=== PATIENT | female | born 1975 | race Caucasian/White ===

== ENCOUNTER 2019-01-07 08:00 | Outpatient (CLI) | payer BC ==
[2019-01-07 18:28] LABS: BASOPHILS # (AUTO) 0.1 10^3/uL (0.0-0.1); BASOPHILS % (AUTO) 0.7 %; EOSINOPHILS % (AUTO) 0.5 %; HGB - HEMOGLOBIN 8.3 g/dL (12.0-16.0); LYMPHOCYTES # (AUTO) 1.8 10^3/uL (1.5-3.5); LYMPHOCYTES % (AUTO) 20.4 %; MEAN CORPUSCULAR HEMOGLOBIN 20.4 pg (27.0-31.0); MEAN CORPUSCULAR VOLUME 72.7 fL (81.0-99.0); MONOCYTES # (AUTO) 0.6 10^3/uL (0.0-1.0); MONOCYTES % (AUTO) 6.3 %; NEUTROPHILS # (AUTO) 6.3 10^3/uL (1.5-6.6); NEUTROPHILS % (AUTO) 71.6 %; PLT - PLATELET COUNT 349 10^3/uL (130-450); RED BLOOD COUNT 4.07 10^6/uL (4.20-5.40); RED CELL DISTRIBUTION WIDTH 19.6 % (12.0-15.0); WHITE BLOOD COUNT 8.7 x10^3/uL (4.8-10.8)
[2019-01-07 18:56] LABS: CALCIUM 9.1 mg/dL (8.5-10.3); CREATININE 0.6 mg/dL (0.4-1.0)
[2019-01-07 20:21] LABS: PLATELET ESTIMATE, MANUAL NORMAL (130-450,000) (NORMAL); PLATELET MORPHOLOGY 1+ LARGE PLATELETS (NORMAL)
== END 2019-01-07 23:59 | disposition home or self-care (01) ==
LOC: LAB.WCP 08:00
PROVIDERS: ATTEND Physician Assistant
DX: I10 Essential (primary) hypertension (principal); N92.0 Excessive and frequent menstruation with regular cycle
CPT/HCPCS: 36415; 80048; 85025

== ENCOUNTER 2019-01-18 08:00 | Outpatient (CLI) | payer BC ==
[2019-01-18 18:31] LABS: BASOPHILS # (AUTO) 0.1 10^3/uL (0.0-0.1); BASOPHILS % (AUTO) 0.8 %; EOSINOPHILS % (AUTO) 0.7 %; HGB - HEMOGLOBIN 8.1 g/dL (12.0-16.0); LYMPHOCYTES # (AUTO) 1.7 10^3/uL (1.5-3.5); LYMPHOCYTES % (AUTO) 27.7 %; MEAN CORPUSCULAR HEMOGLOBIN 20.4 pg (27.0-31.0); MEAN CORPUSCULAR VOLUME 72.8 fL (81.0-99.0); MEAN PLATELET VOLUME 10.4 fL (7.9-10.8); MONOCYTES # (AUTO) 0.4 10^3/uL (0.0-1.0); MONOCYTES % (AUTO) 6.9 %; NEUTROPHILS # (AUTO) 3.9 10^3/uL (1.5-6.6); NEUTROPHILS % (AUTO) 63.6 %; PLT - PLATELET COUNT 461 10^3/uL (130-450); RED BLOOD COUNT 3.97 10^6/uL (4.20-5.40); RED CELL DISTRIBUTION WIDTH 19.3 % (12.0-15.0); WHITE BLOOD COUNT 6.1 x10^3/uL (4.8-10.8)
[2019-01-18 18:45] LABS: PLATELET ESTIMATE, MANUAL INCREASED (>450,000) (NORMAL); PLATELET MORPHOLOGY NORMAL APPEARANCE (NORMAL)
[2019-01-18 19:26] LABS: % IRON SATURATION 2 % (20-50); IRON 11 ug/dL (28-170); TOTAL IRON BINDING CAPACITY 482 ug/dL (250-450); TRANSFERRIN 344 mg/dL (192-382)
== END 2019-01-18 23:59 | disposition home or self-care (01) ==
LOC: LAB.WCP 08:00
PROVIDERS: ATTEND Physician Assistant
DX: D64.9 Anemia, unspecified (principal)
CPT/HCPCS: 36415; 82728; 83540; 84466; 85025

== ENCOUNTER 2019-01-23 14:32 | Outpatient (CLI) | payer BC ==
--- NOTE | 2019-01-25 08:35 | Ultrasound Report ---
Reason: MENORRHAGIA Procedure Date: 01/23/2019 Accession Number: [id number] / [id number] Procedure: US - Pelvic w/Transvaginal CPT Code: FULL RESULT: EXAM: PELVIC ULTRASOUND EXAM DATE: 01/23/2019 03:25 PM. CLINICAL HISTORY: MENORRHAGIA. COMPARISON: None. TECHNIQUE: Realtime transabdominal pelvic scan performed to identify the uterus and adnexa and as an overview of other pelvic structures, followed by transvaginal scan to provide greater detail of the uterus and adnexa, with static image documentation. FINDINGS: Uterus: 10.9 x 4.9 x 6.4 cm, volume 178.7 cc. Anteverted position. Heterogeneous. Masses: Ill-defined judy-fundal hypoechoic lesion measuring about 0.4 x 0.4 x 0.7 cm. Endometrium: 6 mm. Normal. Cervix: Nabothian cysts. Right Ovary: 5.1 x 4.4 x 3.4 cm, volume 39.4 cc. Normal vascularity. Heterogeneous lesion measuring 4.3 x 4.0 x 3.2 cm with low-level internal echoes, probably a hemorrhagic cyst, possible endometrioma. Left Ovary: 3.5 x 2.1 x 1.9 cm, volume 7.2 cc. Normal echotexture and blood flow. Simple cyst measuring 2.1 x 2.0 x 1.7 cm. Free Fluid: None. Other: None. IMPRESSION: 1. Fibroid uterus. 2. Moderate sized right ovarian hemorrhagic cyst, possibly endometrioma. RADIA
== END 2019-01-23 14:33 | disposition home or self-care (01) ==
LOC: DI 14:32
PROVIDERS: ATTEND Physician Assistant
DX: D25.9 Leiomyoma of uterus, unspecified (principal); N83.201 Unspecified ovarian cyst, right side; N92.0 Excessive and frequent menstruation with regular cycle
CPT/HCPCS: 76830; 76856

== ENCOUNTER 2019-02-03 17:00 | Outpatient (CLI) | payer BC ==
[2019-02-03 18:34] LABS: BASOPHILS # (AUTO) 0.1 10^3/uL (0.0-0.1); BASOPHILS % (AUTO) 0.6 %; EOSINOPHILS # (AUTO) 0.1 10^3/uL (0.0-0.7); EOSINOPHILS % (AUTO) 0.6 %; HGB - HEMOGLOBIN 9.7 g/dL (12.0-16.0); LYMPHOCYTES # (AUTO) 2.3 10^3/uL (1.5-3.5); LYMPHOCYTES % (AUTO) 25.5 %; MEAN CORPUSCULAR HEMOGLOBIN 22.2 pg (27.0-31.0); MEAN CORPUSCULAR HGB CONC 29.4 g/dL (32.0-36.0); MEAN CORPUSCULAR VOLUME 75.5 fL (81.0-99.0); MEAN PLATELET VOLUME 9.9 fL (7.9-10.8); MONOCYTES # (AUTO) 0.6 10^3/uL (0.0-1.0); MONOCYTES % (AUTO) 6.1 %; PLT - PLATELET COUNT 355 10^3/uL (130-450); RED BLOOD COUNT 4.37 10^6/uL (4.20-5.40); RED CELL DISTRIBUTION WIDTH 21.7 % (12.0-15.0)
[2019-02-03 20:08] LABS: PLATELET ESTIMATE, MANUAL NORMAL (130-450,000) (NORMAL); PLATELET MORPHOLOGY 1+ LARGE PLATELETS (NORMAL)
== END 2019-02-03 17:01 | disposition home or self-care (01) ==
LOC: LAB.R 17:00
PROVIDERS: ATTEND Physician Assistant
DX: D64.9 Anemia, unspecified (principal); N92.0 Excessive and frequent menstruation with regular cycle
CPT/HCPCS: 85025

== ENCOUNTER 2019-02-15 17:00 | Outpatient (CLI) | payer BC ==
[2019-02-15 19:33] LABS: BASOPHILS % (AUTO) 0.6 %; EOSINOPHILS # (AUTO) 0.1 10^3/uL (0.0-0.7); EOSINOPHILS % (AUTO) 0.8 %; LYMPHOCYTES # (AUTO) 1.8 10^3/uL (1.5-3.5); LYMPHOCYTES % (AUTO) 28.4 %; MEAN CORPUSCULAR HEMOGLOBIN 22.8 pg (27.0-31.0); MEAN CORPUSCULAR HGB CONC 29.1 g/dL (32.0-36.0); MEAN CORPUSCULAR VOLUME 78.2 fL (81.0-99.0); MEAN PLATELET VOLUME 11.3 fL (7.9-10.8); MONOCYTES # (AUTO) 0.3 10^3/uL (0.0-1.0); MONOCYTES % (AUTO) 5.5 %; NEUTROPHILS % (AUTO) 64.4 %; PLT - PLATELET COUNT 353 10^3/uL (130-450); RED BLOOD COUNT 3.95 10^6/uL (4.20-5.40); RED CELL DISTRIBUTION WIDTH 22.7 % (12.0-15.0); WHITE BLOOD COUNT 6.2 x10^3/uL (4.8-10.8)
[2019-02-15 21:12] LABS: PLATELET ESTIMATE, MANUAL NORMAL (130-450,000) (NORMAL); PLATELET MORPHOLOGY 1+ GIANT PLATELETS (NORMAL)
== END 2019-02-15 23:59 | disposition home or self-care (01) ==
LOC: LAB.R 17:00
PROVIDERS: ATTEND Physician Assistant
DX: D64.9 Anemia, unspecified (principal)
CPT/HCPCS: 85025

== ENCOUNTER 2019-04-27 10:02 | Outpatient (CLI) | payer BC ==
[2019-04-27 10:31] LABS: BASOPHILS % (AUTO) 0.5 %; EOSINOPHILS % (AUTO) 0.7 %; HGB - HEMOGLOBIN 9.1 g/dL (12.0-16.0); LYMPHOCYTES # (AUTO) 1.3 10^3/uL (1.5-3.5); LYMPHOCYTES % (AUTO) 23.7 %; MEAN CORPUSCULAR HEMOGLOBIN 22.1 pg (27.0-31.0); MEAN CORPUSCULAR HGB CONC 29.1 g/dL (32.0-36.0); MEAN CORPUSCULAR VOLUME 76.2 fL (81.0-99.0); MEAN PLATELET VOLUME 9.5 fL (7.9-10.8); MONOCYTES # (AUTO) 0.4 10^3/uL (0.0-1.0); MONOCYTES % (AUTO) 6.3 %; NEUTROPHILS # (AUTO) 3.8 10^3/uL (1.5-6.6); NEUTROPHILS % (AUTO) 68.6 %; PLT - PLATELET COUNT 349 10^3/uL (130-450); RED BLOOD COUNT 4.11 10^6/uL (4.20-5.40); RED CELL DISTRIBUTION WIDTH 16.9 % (12.0-15.0); WHITE BLOOD COUNT 5.6 x10^3/uL (4.8-10.8)
[2019-04-27 10:31] LABS: HCG UR QUAL NEGATIVE
[2019-04-27 10:37] LABS: CALCIUM 8.9 mg/dL (8.5-10.3); CREATININE 0.6 mg/dL (0.4-1.0)
== END 2019-04-27 10:03 | disposition home or self-care (01) ==
LOC: LAB 10:02
PROVIDERS: ATTEND Obstetrics & Gynecology
DX: Z01.812 Encounter for preprocedural laboratory examination (principal); N92.0 Excessive and frequent menstruation with regular cycle; D64.9 Anemia, unspecified
CPT/HCPCS: 36415; 80048; 81025; 85025; 86850; 86900; 86901; 86920

== ENCOUNTER 2019-04-28 10:06 | Day surgery (SDC) | payer BC ==
[~2019-04-28 10:06] MED LIST: ACETAMINOPHEN 1,000 MG/100 ML 100 ML IV ONE; CEFAZOLIN SODIUM IN 0.9 % NACL 2 GM/100 ML BAG IV ONE; CELECOXIB 100 MG CAPSULE PO ONE; GABAPENTIN 400 MG CAPSULE ONE
[2019-04-28] MEDS ORDERED: ROCURONIUM 50 MG/5 ML VIAL IVP ONE (10:07)
[2019-04-28] MEDS ORDERED: GLYCOPYRROLATE 1 MG/5 ML VIAL IVP ONE (10:07)
[2019-04-28] MEDS ORDERED: ePHEDrine 50 MG/ML VIAL IVP ONE (10:07)
[2019-04-28] MEDS ORDERED: MIDAZOLAM 2 MG/2 ML VIAL IVP ONE (10:07)
[2019-04-28] MEDS ORDERED: fentaNYL 250 MCG/5 ML VIAL IVP ONE (10:07)
[2019-04-28] MEDS ORDERED: KETOROLAC 30 MG/ML VIAL IVP ONE (10:07)
[2019-04-28] MEDS ORDERED: LACTATED RINGERS 1,000 ML IV ONE ×2 (10:08→15:56)
--- NOTE | 2019-04-28 11:36 | ANESTHESIA ---
Pre-Anesthesia VS, & Labs - Diagnosis menorrhagia, anemia - Procedure LAVH, B salpingectomy, possible oopherectomy, cystoscopy Vital Signs: Temp Pulse Resp BP Pulse Ox 36.6 C 90 16 145/90 H 100 04/28/19 10:13 04/28/19 10:13 04/28/19 10:13 04/28/19 10:13 04/28/19 10:13 Height 5 ft 3 in Weight (kg) 90 kg - NPO >8 hours - Is Patient ?: No - Lab Results Lab results reviewed: Yes Home Medications and Allergies Home Medications: Ambulatory Orders Lisinopril [Zestril] 20 mg PO DAILY 04/27/19 Lisinopril [Zestril] 20 mg PO DAILY 04/27/19 Allergies/Adverse Reactions: Allergies Allergy/AdvReac Type Severity Reaction Status Date / Time No Known Drug Allergies Allergy Verified 07/21/15 20:38 Anes History & Medical History - Anesthetic History Anesthesia Complications: reports: No previous complications Family history of Anesthesia Complications: Denies Family history of Malignant Hyperthermia: Denies - Medical History Cardiovascular: reports: Hypertension Pulmonary: reports: None Gastrointestinal: reports: None Urinary: reports: None Musculoskeletal: reports: None Endocrine/Autoimmune: reports: None Skin: reports: None Smoking Status: Never smoker - Surgical History Other Past Surgical History: all teeth extracted Exam General: Alert, Oriented x3, Cooperative Dental: Dentures full Upper, Dentures full Lower Mouth Openin Fingerbreadth Neck Mobility: Normal Mallampati classification: II Thyromental Distance: greater than 6 cm Respiratory: Lungs clear, Normal breath sounds, No respiratory distress Cardiovascular: Regular rate (states she is frequently tachycardic r/t anemia and hypovolemia) Neurological: Normal speech Mental/Cognitive Status: Alert/Oriented X3, Normal for patient Cognitive Status: Within normal limits Plan Anesthesia Type: General, Transverse Abdominis Plane (TAP) Block (possible) Regional Block: Per Surgeon's request for Post Op pain control Consent for Procedure(s) Verified and Reviewed: Yes Code Status: Attempt Resuscitation ASA classification: 2-Mild systemic disease Is this case an emergency?: No
[2019-04-28] MEDS ORDERED: LIDOCAINE MPF 2%-EPI 1:200000 20 ML VIAL ONE ×2 (13:28→13:46)
[2019-04-28] MEDS ORDERED: BUPIVACAINE 0.5% PF 30 ML VIAL ONE ×2 (13:28→13:46)
[2019-04-28] MEDS ORDERED: BUPIVACAINE 0.5% PF 30 ML VIAL INFIL ONE ×2 (14:50)
[2019-04-28] MEDS ORDERED: LIDOCAINE 2%-EPI 1:100000 20 ML MDV SUBQ ONE ×2 (14:51)
--- NOTE | 2019-04-28 16:02 | OPERATIVE REPORT ---
Operative Report - General Procedure Date: 04/28/19 Planned Procedure: Menorrhagia Anemia fibroid uterus Post Op Diagnosis: Menorrhagia, anemia, fibroid pelvic endometriosis - Procedure Note Primary Surgeon: Janusz Keith MD Secondary Surgeon: Leila Casper MD Anesthesia Provider: Surjit Deleon CRNA Anesthesia Technique: General ET tube Pathology: Uterus wiht both tubes and Left ovary IV Fluids (mL): 1,200 Estimated Blood Loss (mL): 150 Urine Output (mL): 75 Findings: pelvic endometriosis. Complications: none
[2019-04-28] MEDS: HYDROmorphone 0.5 MG/0.5 ML SYRINGE ONE ×2 (16:13→16:32)
[2019-04-28] MEDS ORDERED: HYDROmorphone 0.5 MG/0.5 ML SYRINGE ONE (16:32)
[2019-04-28] MEDS ORDERED: ONDANSETRON 4 MG/2 ML VIAL IVP PRN (16:35)
[2019-04-28] MEDS ORDERED: HYDROmorphone 0.5 MG/0.5 ML SYRINGE IVP PRN (16:35)
[2019-04-28] MEDS: oxyCODONE 5 MG TABLET PO PRN ×2 (18:33→22:56)
[2019-04-28] MEDS: ENOXAPARIN 40 MG/0.4 ML SYRINGE SUBQ SCH (18:33)
[2019-04-28] MEDS: CARBOXYMETHYLCELLULOSE OPHTH DROPS EACHEYE PRN ×2 (21:35→23:10)
--- NOTE | 2019-04-28 22:42 | OPERATIVE REPORT ---
DATE OF SERVICE: 04/28/2019 Physician: Janusz Keith MD PREOPERATIVE DIAGNOSES: Menorrhagia, anemia, fibroid uterus. POSTOPERATIVE DIAGNOSES: Menorrhagia, anemia, fibroid uterus, pelvic endometriosis. PROCEDURE PERFORMED: Total laparoscopic hysterectomy with bilateral salpingectomy and left oophorectomy, cystoscopy. SURGEON: Janusz Keith MD CURRICULUM MANAGER: Radhika Casper MD ANESTHESIA: General via endotracheal tube. ANESTHESIA PROVIDER: Surjit Deleon CRNA. ESTIMATED BLOOD LOSS: 150 mL. IV FLUIDS: 1200 mL. URINE OUTPUT: 75 mL. FINDINGS: Upon entering the abdominal cavity, there was evidence of pelvic endometriosis, particularly in the cul-de-sac, as well as on the fundus of the uterus. There were minimal adhesions. The uterus was enlarged, moderately. The right ovary had evidence of what appeared to be ovulatory cyst. The left ovary appeared to be normal in size. The patient requested a left ovary be removed, because that is where her pain was. DESCRIPTION OF PROCEDURE: Following adequate endotracheal anesthesia, the patient was placed in the supine position. At this point, she was prepped and draped in the usual fashion. She was in Srinivas stirrups. A timeout was performed at which concerns were addressed. A speculum was placed in the vagina. The cervix visualized and then grasped with a single-tooth tenaculum. It was dilated all the way up to size 8 mm. At this point, Advincular Research Physiologist was placed. This was a 4 mm size one. This was checked to be sure that was all the way into the fornices. Then, 10 mL of 0.25% Marcaine with 1% Marcaine with epinephrine was injected into the uterosacral bilaterally. At this point, the cylinder die machine operator's gloves were changed and then following local anesthesia with Marcaine, lidocaine, epinephrine solution, the subumbilical was incised with #15 blade. A 5 mm trocar and sheath were placed on a single pass into the abdominal cavity without difficulty. At this point, the laparoscope was introduced, and CO2 was used to insufflate the abdominal cavity. There was no evidence of any injury at site of insertion. Then, 2 additional ports were placed, both in left and right lower quadrants, following injection with lidocaine, Marcaine, epinephrine solution. These were both under direct visualization to assure no injury to the intra-abdominal contents. The entire pelvis was inspected with the aforementioned findings of cul-de-sac endometriosis. The right fallopian tube was grasped and then utilizing the LigaSure, the mesosalpinx was cauterized and transected all the way up to the cornu. Then, the round ligament was cauterized and transected. The anterior leaf of the broad ligament was opened separately, and then the LigaSure was used to cauterize and transect this all the way to the internal os of the cervix. Then, traversing across the lower uterine segment, a bladder flap was developed with the LigaSure. The posterior leaf was also. The uterine vessels were isolated, cauterized, and transected with LigaSure. At this point, the left fallopian tube was grasped with the LigaSure, and then the infundibulopelvic ligament was doubly cauterized and transected with the LigaSure. This was then carried all the way across the mesovarium to the round ligament. The round ligament was then doubly cauterized and transected. This was carried all the way down to the end of the internal os of the cervix. There was some minimal bleeding noted on the left-hand side. This was treated with the LigaSure. The bladder flap was developed using the LigaSure. Care was taken that there was no further blood supply to the uterus as the uterus was blanching well. Then, utilizing a Harmonic scalpel, the apex of the vagina was incised and carried across the upper portion of the vagina. Then, around the right hand side. This was carried back toward the uterosacral ligaments, but not transecting them. Then, on the left-hand side this was treated in a similar fashion. The uterus was then amputated from the apex of the vagina. Care was taken to hold the bowel out of the way to minimize its injury. The uterus was then grasped with a single-tooth tenaculum, brought down through the vagina and then out. A suction bulb was then placed in the vagina in the reverse position to maintain a pneumoperitoneum. The apex of the vagina was then closed utilizing an Endo suture with V-Loc suture. This is 0 V-Loc. This was carried all the way across the apex of the vagina. Care was taken to get a larger bite as possible to decrease the risk of wound breakdown. The suture was then brought back across the apex of the vagina and then trimmed. There was no evidence of any bleeding. At this point, a cystoscopy was performed, and there was evidence of good flow through both ureters. The laparoscopic sites were then closed utilizing a Luiz-Kimmy in the right side and then 4-0 Monocryl subcuticular on all three. The patient tolerated the procedure well and was taken to recovery in stable condition. Sponge and needle counts were correct. During the Case Dr Casper helped with retraction as well as dissection and hemostasis. TD: 04/28/2019 16:16 JAQUI
[2019-04-29] MEDS: oxyCODONE 5 MG TABLET PO PRN ×2 (03:28→08:20)
[2019-04-29] MEDS: ENOXAPARIN 40 MG/0.4 ML SYRINGE SUBQ SCH (08:20)
[2019-04-29] MEDS ORDERED: ENOXAPARIN 40 MG/0.4 ML SYRINGE SUBQ SCH (09:00)
[2019-04-29 10:59] VITALS: BP 138/76
== END 2019-04-29 11:10 | disposition home or self-care (01) ==
LOC: SDS 10:06 → MS3 16:55 → SDS 04-29 11:10
PROVIDERS: ATTEND Obstetrics & Gynecology
PROC: 0UT14ZZ Resection of Left Ovary, Percutaneous Endoscopic Approach (ICD-10-PCS; 2019-04-28)
PROC: 0UT74ZZ Resection of Bilateral Fallopian Tubes, Percutaneous Endoscopic Approach (ICD-10-PCS; 2019-04-28)
PROC: 0UT94ZZ Resection of Uterus, Percutaneous Endoscopic Approach (ICD-10-PCS; principal; 2019-04-28 11:00)
DX: N92.0 Excessive and frequent menstruation with regular cycle (principal); D64.9 Anemia, unspecified; N80.3 Endometriosis of pelvic peritoneum; D25.1 Intramural leiomyoma of uterus; I10 Essential (primary) hypertension
CPT/HCPCS: 58571; A9270; J0131; J0690; J1170; J1650; J3010; J7120

== ENCOUNTER 2020-02-28 14:55 | Outpatient (CLI) | payer OTHER | END 2020-02-28 14:56 | disposition home or self-care (01) | LOC: COV 14:55 | PROVIDERS: ATTEND Family Medicine | DX: U07.1 COVID-19 (principal) ==

== ENCOUNTER 2021-04-03 13:23 | Emergency (ER) | payer OTHER ==
[2021-04-03] MEDS: lisinopriL 5 MG TABLET PO STA ×2 (15:13→15:45)
--- NOTE | 2021-04-03 15:18 | ED Physician Documentation ---
History of Present Illness - Stated complaint Stated Complaint: HIGH BP - Chief complaint Chief Complaint: General - Additonal information Additional information: 45-year-old female presents emergency department for evaluation of her elevated blood pressure. Due to insurance issues and the pandemic she has been unable to have her lisinopril refilled. She took her last dose about 1 month ago. She has been checking her blood pressures almost daily since then and have noted that they are in the 140s to the 160s. However this morning her systolic blood pressure was over 200. She does endorse feeling somewhat lightheaded and dizzy. She does have a mild headache. No nausea or vomiting. No chest pain. Review of Systems Constitutional: denies: Fever, Chills Eyes: denies: Loss of vision Ears: reports: Reviewed and negative Nose: reports: Reviewed and negative Throat: reports: Reviewed and negative Cardiac: denies: Chest pain / pressure, Palpitations Respiratory: denies: Dyspnea, Cough GI: reports: Reviewed and negative : denies: Dysuria, Frequency, Hesitancy Skin: denies: Rash, Lesions Musculoskeletal: reports: Reviewed and negative Neurologic: reports: Headache. 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 : None HEENT: None Psych: None Musculoskeletal: None Derm: None - Past Surgical History Past Surgical History: No /GREEN MATERIAL VALUE ADDED ASSESSOR: Hysterectomy - Present Medications Home Medications: Ambulatory Orders Medication Instructions Recorded Confirmed Lisinopril [Zestril] 20 mg PO DAILY 04/27/19 04/03/21 Lisinopril [Zestril] 20 mg PO DAILY #30 tablet 04/03/21 - Allergies Allergies/Adverse Reactions: Allergies Allergy/AdvReac Type Severity Reaction Status Date / Time No Known Drug Allergies Allergy Verified 04/03/21 13:33 - Social History Does the pt smoke?: No Smoking Status: Never smoker Does the pt drink ETOH?: No Does the pt have substance abuse?: No - Immunizations Immunizations are current?: No Immunizations: Other immun not current - POLST Patient has POLST: No PD ED PE NORMAL - General General: Alert and oriented X 3, No acute distress - HEENT HEENT: PERRL - Neck Neck: Supple, no meningeal sign - Cardiac Cardiac: RRR, No murmur - Respiratory Respiratory: Clear bilaterally - Abdomen Abdomen: Normal bowel sounds, Soft, Non tender, Non distended - Back Back: No CVA TTP, No spinal TTP - Derm Derm: Warm and dry - Extremities Extremities: No deformity - Neuro Neuro: Alert and oriented X 3, conductor symphonic orchestra 2-12 intact, No motor deficit, Normal speech Eye Opening: Spontaneous Motor: Obeys Commands Verbal: Oriented GCS Score: 15 - Psych Psych: Normal mood Results - Vitals Vitals: Vital Signs - 24 hr 04/03/21 04/03/21 13:33 15:18 Temperature 36.5 C Heart Rate 96 76 Respiratory 18 20 Rate Blood Pressure 216/86 H 197/104 H O2 Saturation 100 99 Oxygen O2 Source Room air - EKG (time done) 1503 Rate: Rate (enter#) (82) Rhythm: NSR [place]: Normal Intervals: Normal [place] QRS: LVH Ischemia: Normal ST segments Compare to prior EKG: Old EKG unavailable Computer interpretation: Agree with computer - Labs Labs: Laboratory Tests 04/03/21 04/03/21 04/03/21 15:10 15:10 15:10 WBC 8.5 RBC 4.51 Hgb 13.8 Hct 39.8 MCV 88.2 MCH 30.6 MCHC 34.7 RDW 12.1 Plt Count 278 MPV 10.6 Neut # (Auto) 5.9 Lymph # (Auto) 2.2 [place] # (Auto) 0.4 Eos # (Auto) 0.1 Baso # (Auto) 0.0 Absolute Nucleated RBC 0.00 Nucleated RBC % 0.0 Sodium 135 Potassium 3.5 Chloride 100 L Carbon Dioxide 27 Anion Gap 8.0 BUN 6 Creatinine 0.5 Estimated GFR (MDRD) 133 Glucose 91 Calcium 9.0 Total Bilirubin 0.5 AST 14 ALT 17 Alkaline Phosphatase 65 Troponin I High Sens 2.8 Total Protein 7.5 Albumin 4.2 Globulin 3.3 Albumin/Globulin Ratio 1.3 Lipase 23 TSH 04/03/21 15:10 WBC RBC Hgb Hct MCV MCH MCHC RDW Plt Count MPV Neut # (Auto) Lymph # (Auto) [place] # (Auto) Eos # (Auto) Baso # (Auto) Absolute Nucleated RBC Nucleated RBC % Sodium Potassium Chloride Carbon Dioxide Anion Gap BUN Creatinine Estimated GFR (MDRD) Glucose Calcium Total Bilirubin AST ALT Alkaline Phosphatase Troponin I High Sens Total Protein Albumin Globulin Albumin/Globulin Ratio Lipase TSH 1.25 - Rads (name of study) CXR Radiology: Final report received (No acute cardiopulmonary process) PD MEDICAL DECISION MAKING - ED course Complexity details: reviewed results, re-evaluated patient, considered differential, d/w patient ED course: 45-year-old female presents emergency department for evaluation of elevated blood pressure. She has been out of her lisinopril for about 1 month. She noticed this morning that her blood pressure was greater than 200. She had no chest pain but did endorse some dizziness and a mild headache. No nausea or vomiting. Screening EKG is nonischemic. Chest x-ray is unremarkable. Screening labs without acute worrisome findings. Negative troponin normal thyroid as well as normal renal function. Patient was given 20 mg of lisinopril here in the emergency department with resultant decrease in her blood pressure. She does not present with hypertensive urgency or emergency. Therefore her prescription for lisinopril will be sent to the [facility] in [place]. Patient is scheduled to see her primary care doctor on 11 April to reestablish care. Emergent return precautions discussed Departure - Departure Disposition: Home, Self Care Clinical Impression: Hypertension Qualifiers: Hypertension type: unspecified Qualified Code(s): I10 - Essential (primary) hypertension Condition: Stable Record reviewed to determine appropriate education?: Yes Prescriptions: Lisinopril [Zestril] 20 mg PO DAILY #30 tablet Comments: You are seen in the emergency department today for concerns of an elevated blood pressure. You have been out of your medication for just over a month. Your blood pressure was initially fairly elevated but after receiving 20 mg of lisinopril it is now approximately 180 mg of mercury. Your screening labs, chest x-ray and EKG do not show any worrisome findings. I have sent a prescription for lisinopril to the [facility] in [place]. Please fill that this evening and begin taking tomorrow as directed. I encourage you to take your blood pressure every day at the same time about 2 hours after taking your lisinopril. Do not miss follow-up with your primary care doctor on the twenty-second to reestablish care. Future refills will have to be written with your primary care doctor. Return to the ER if you develop chest pain, have sudden shortness of air or any fainting episodes or leg swelling.
[2021-04-03 15:22] LABS: BASOPHILS % (AUTO) 0.5 %; EOSINOPHILS # (AUTO) 0.1 10^3/uL (0.0-0.7); EOSINOPHILS % (AUTO) 0.6 %; HCT - HEMATOCRIT 39.8 % (37.0-47.0); HGB - HEMOGLOBIN 13.8 g/dL (12.0-16.0); LYMPHOCYTES # (AUTO) 2.2 10^3/uL (1.5-3.5); LYMPHOCYTES % (AUTO) 25.3 %; MEAN CORPUSCULAR HEMOGLOBIN 30.6 pg (27.0-31.0); MEAN CORPUSCULAR HGB CONC 34.7 g/dL (32.0-36.0); MEAN CORPUSCULAR VOLUME 88.2 fL (81.0-99.0); MEAN PLATELET VOLUME 10.6 fL (7.9-10.8); MONOCYTES # (AUTO) 0.4 10^3/uL (0.0-1.0); MONOCYTES % (AUTO) 4.6 %; NEUTROPHILS # (AUTO) 5.9 10^3/uL (1.5-6.6); NEUTROPHILS % (AUTO) 68.6 %; PLT - PLATELET COUNT 278 10^3/uL (130-450); RED BLOOD COUNT 4.51 10^6/uL (4.20-5.40); RED CELL DISTRIBUTION WIDTH 12.1 % (12.0-15.0); WHITE BLOOD COUNT 8.5 x10^3/uL (4.8-10.8)
[2021-04-03 15:36] LABS: ALBUMIN 4.2 g/dL (3.2-5.5); ALBUMIN/GLOBULIN RATIO 1.3 (1.0-2.2); BILIRUBIN,TOTAL 0.5 mg/dL (0.2-1.0); CREATININE 0.5 mg/dL (0.4-1.0); POTASSIUM 3.5 mmol/L (3.5-5.0); TOTAL PROTEIN 7.5 g/dL (6.7-8.2)
--- NOTE | 2021-04-03 15:37 | XRAY Report ---
PROCEDURE: Chest 1 View X-Ray INDICATIONS: Hypertension TECHNIQUE: One view of the chest was acquired. COMPARISON: None FINDINGS: Surgical changes and devices: None. Lungs and pleura: No pleural effusions or pneumothorax. Lungs are clear. Mediastinum: Mediastinal contours appear normal. Heart size is normal. Bones and chest wall: No suspicious bony lesions. Overlying soft tissues appear unremarkable. IMPRESSION: Normal chest radiograph. Reviewed by: Magdiel Rowe MD on 04/03/2021 3:35 PM PST Approved by: Magdiel Rowe MD on 04/03/2021 3:35 PM PST Station ID: [id number]
[2021-04-03 16:36] VITALS: BP 161/90
== END 2021-04-03 16:45 | disposition home or self-care (01) ==
LOC: ED 13:23
DX: I10 Essential (primary) hypertension (principal); T46.4X6A Underdosing of angiotensin-converting-enzyme inhibitors, initial encounter; Z91.138 Patient's unintentional underdosing of medication regimen for other reason
CPT/HCPCS: 36415; 71045; 80053; 83690; 84443; 84484; 85025; 93005; 99284; A9270

== ENCOUNTER 2021-04-26 08:00 | Outpatient (CLI) | payer OTHER | END 2021-04-26 23:59 | LOC: LAB.N 08:00 | PROVIDERS: ATTEND Physician Assistant | DX: R05.9 Cough, unspecified (principal); Z20.822 Contact with and (suspected) exposure to COVID-19 ==

== ENCOUNTER 2021-05-02 08:55 | Outpatient (CLI) | payer OTHER ==
--- NOTE | 2021-05-03 07:25 | Mammography Report ---
BILATERAL DIGITAL SCREENING MAMMOGRAM 3D/2D: 05/02/2021 CLINICAL: Baseline exam. Routine screening. No prior exams were available for comparison. The tissue of both breasts is extremely dense, which l owers the sensitivity of mammography. There are benign calcifications in both breasts. No significant masses, calcifications, or other findings are seen in either breast. IMPRESSION: BENIGN There is no mammographic evidence of malignancy. A 1 year screening mammogram is recommended. This exam was interpreted at Station ID: [id number]. NOTE: For mammograms, a report in lay terms will be sent to the patient. Approximately 15% of breast malignancies will not be visualized mammographically. In the management of a palpable breast mass, a negative mammogram must not discourage biopsy of a clinically suspicious lesion. Electronically Signed By: Juan Alberto Ingram M.D. [email or web address]:05/02/2021 13:51:04 ACR BI-RADS Category 2: Benign Finding(s) 3342F PARENCHYMAL PATTERN: (VD) - The breast(s) demonstrate(s) extremely dense parenchyma, limiting the sen sitivity of mammography. BI-RADS CATEGORY: (2) - 2 RECOMMENDATION: (ANNUAL) - Recommend routine annual screening mammography. [id number] 1 year screening LATERALITY: (B)
== END 2021-05-02 08:56 | disposition home or self-care (01) ==
LOC: DI.N 08:55
PROVIDERS: ATTEND Family Medicine
DX: Z12.31 Encounter for screening mammogram for malignant neoplasm of breast (principal)

== ENCOUNTER 2022-01-22 12:09 | Outpatient (CLI) | payer MEDICAID ==
--- NOTE | 2022-01-22 16:41 | XRAY Report ---
PROCEDURE: Shoulder 2 View LT INDICATIONS: L SHOULDER PX TECHNIQUE: 2 views of the shoulder were acquired. COMPARISON: None. FINDINGS: Bones: No fractures or dislocations. No suspicious bony lesions. Visualized ribs appear intact. Soft tissues: No suspicious soft tissue calcifications. IMPRESSION: Unremarkable left shoulder radiographs Reviewed by: Arcenio Ndiaye MD on 01/22/2022 3:40 PM AKDT Approved by: Arcenio Ndiaye MD on 01/22/2022 3:40 PM AKDT Station ID: [id number]
== END 2022-01-22 12:10 | disposition home or self-care (01) ==
LOC: DI.N 12:09
PROVIDERS: ATTEND Family Medicine
DX: M75.42 Impingement syndrome of left shoulder (principal); R10.816 Epigastric abdominal tenderness; I10 Essential (primary) hypertension; K21.9 Gastro-esophageal reflux disease without esophagitis; R73.9 Hyperglycemia, unspecified
CPT/HCPCS: 36415; 80053; 80061; 83036; 83721; 84443; 85025

== ENCOUNTER 2022-01-22 12:15 | Outpatient (CLI) | payer MEDICAID ==
[2022-01-22 17:39] LABS: BASOPHILS % (AUTO) 0.6 %; EOSINOPHILS % (AUTO) 0.4 %; HCT - HEMATOCRIT 38.4 % (37.0-47.0); HGB - HEMOGLOBIN 12.9 g/dL (12.0-16.0); LYMPHOCYTES # (AUTO) 1.9 10^3/uL (1.5-3.5); MEAN CORPUSCULAR HEMOGLOBIN 29.9 pg (27.0-31.0); MEAN CORPUSCULAR HGB CONC 33.6 g/dL (32.0-36.0); MEAN CORPUSCULAR VOLUME 88.9 fL (81.0-99.0); MEAN PLATELET VOLUME 11.7 fL (7.9-10.8); MONOCYTES # (AUTO) 0.4 10^3/uL (0.0-1.0); MONOCYTES % (AUTO) 5.8 %; NEUTROPHILS # (AUTO) 4.3 10^3/uL (1.5-6.6); NEUTROPHILS % (AUTO) 64.9 %; PLT - PLATELET COUNT 281 10^3/uL (130-450); RED BLOOD COUNT 4.32 10^6/uL (4.20-5.40); RED CELL DISTRIBUTION WIDTH 12.8 % (12.0-15.0); WHITE BLOOD COUNT 6.7 x10^3/uL (4.8-10.8)
[2022-01-22 18:08] LABS: ALBUMIN 4.3 g/dL (3.2-5.5); ALBUMIN/GLOBULIN RATIO 1.4 (1.0-2.2); ALKALINE PHOSPHATASE 54 IU/L (42-121); ALT ALANINE AMINOTRANSFERASE 14 IU/L (10-60); AST ASPARTATE AMINOTRANSFERASE 13 IU/L (10-42); BILIRUBIN,TOTAL 0.6 mg/dL (0.2-1.0); BUN - BLOOD UREA NITROGEN 8 mg/dL (6-20); CALCIUM 9.3 mg/dL (8.5-10.3); CARBON DIOXIDE - CO2 29 mmol/L (21-32); CHLORIDE 102 mmol/L (101-111); CHOL/HDL RATIO 3.8 (<4.4); CHOLESTEROL 163 mg/dL; CREATININE 0.6 mg/dL (0.4-1.0); GFR - MDRD 108 (>89); GLUCOSE 96 mg/dL (70-100); HDL CHOLESTEROL 43 mg/dL; LDL CHOLESTEROL,CALCULATED 91 mg/dL; LDL/HDL RATIO 2.1 (<4.4); POTASSIUM 3.7 mmol/L (3.5-5.0); SODIUM 137 mmol/L (135-145); TOTAL PROTEIN 7.4 g/dL (6.7-8.2); TRIGLYCERIDES 146 mg/dL; VLDL CHOLESTEROL 29 mg/dL
[2022-01-22 18:14] LABS: THYROID STIMULATING HORMONE 0.94 uIU/mL (0.34-5.60)
[2022-01-22 20:39] LABS: ESTIMATED AVERAGE GLUCOSE 91 mg/dL (70-100); HEMOGLOBIN A1c% 4.8 % (4.27-6.07)
== END 2022-01-22 12:16 | disposition home or self-care (01) ==
LOC: LAB.N 12:15
PROVIDERS: ATTEND Family Medicine
DX: R10.816 Epigastric abdominal tenderness (principal); I10 Essential (primary) hypertension; K21.9 Gastro-esophageal reflux disease without esophagitis; R73.9 Hyperglycemia, unspecified
CPT/HCPCS: 36415; 80053; 80061; 83036; 83721; 84443; 85025

== ENCOUNTER 2023-07-16 21:20 | Emergency (ER) | payer BC, MEDICAID, OTHER ==
--- NOTE | 2023-07-16 21:24 | ED Physician Documentation ---
PD HPI CHEST PAIN - Stated complaint Stated Complaint: CHEST PX - History obtained from History obtained from: Patient - Additional information Additional information: HPI from patient. Patient complains of midline and right parasternal chest pain, onset at 2 AM this morning waking her from sleep. The pain has been constant but waxing and waning. The pain radiates to the back of her neck as well as "straight through" (per patient) to her midline upper back. She is also noticed dyspnea on exertion but no shortness of breath at rest in this same timeframe. Likewise, she has had mild and episodic dizziness with exertion. She denies history of similar symptoms. She takes lisinopril, amlodipine, and metoprolol for high blood pressure but otherwise has no medications nor past medical history. She has mild bilateral leg edema at times, which is not new per patient. There is no pleuritic component. The chest pain is not worse with exertion but the dyspnea and dizziness is only with exertion. Review of Systems Constitutional: denies: Fever Cardiac: reports: Chest pain / pressure, Pedal edema (mild, bilateral, chronic). denies: Palpitations Respiratory: reports: Dyspnea ([place]). 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: Hysterectomy - Present Medications Home Medications: Ambulatory Orders Medication Instructions Recorded Confirmed Lisinopril [Zestril] 20 mg PO DAILY #30 tablet 04/03/21 - Allergies Allergies/Adverse Reactions: Allergies Allergy/AdvReac Type Severity Reaction Status Date / Time No Known Drug Allergies Allergy Verified 07/16/23 21:28 - Social History Does the pt smoke?: No Smoking Status: Never smoker Does the pt drink ETOH?: No Does the pt have substance abuse?: No - Immunizations Immunizations are current?: No Immunizations: Other immun not current - POLST Patient has POLST: No PD ED PE NORMAL - Vitals Vital signs reviewed: Yes - General General: Alert and oriented X 3, No acute distress, Well developed/nourished - Cardiac Cardiac: RRR, No murmur, No gallop, No rub - Respiratory Respiratory: No respiratory distress, Clear bilaterally - Abdomen Abdomen: Soft, Non tender - Extremities Extremities: No edema Results - Vitals Vitals: Oxygen O2 Source Room air - EKG (time done) No standard instances EKG releavant findings:: EKG personally interpreted by author of this note. Relevant findings are: Rate: Rate (enter#) (67) Rhythm: NSR [place]: Normal Intervals: Normal [place] QRS: Normal Ischemia: Normal ST segments - Labs Labs: Laboratory Tests 07/16/23 07/16/23 21:36 21:36 WBC 8.5 RBC 4.52 Hgb 13.6 Hct 40.6 MCV 89.8 MCH 30.1 MCHC 33.5 RDW 12.4 Plt Count 281 MPV 11.3 H Neut # (Auto) 5.4 Lymph # (Auto) 2.5 [place] # (Auto) 0.4 Eos # (Auto) 0.1 Baso # (Auto) 0.1 Absolute Nucleated RBC 0.00 Nucleated RBC % 0.0 Sodium 136 Potassium 3.5 Chloride 103 Carbon Dioxide 26 Anion Gap 7.0 BUN 13 Creatinine 0.6 Estimated GFR (MDRD) 107 Glucose 106 H Calcium 9.8 Total Bilirubin 0.2 AST 13 ALT 14 Alkaline Phosphatase 65 Troponin I High Sens 2.4 Total Protein 7.3 Albumin 4.5 Globulin 2.8 Albumin/Globulin Ratio 1.6 Lipase 24 - Rads (name of study) chest xray Relevant Findings:: Prelim report reviewed, See rad report PD Medical Decision Making - ED course Complexity details: reviewed results, re-evaluated patient, considered differential, d/w patient ED course: No concerning nor diagnostic findings on tonight's test, including EKG, blood tests (including hs-cTn), and chest x-ray. Etiology of symptoms not apparent at this time. Results d/w patient, return precautions reviewed, recommended follow up with PCP next available appointment Departure - Departure Disposition: 01 Home, Self Care Clinical Impression: Chest pain Qualifiers: Chest pain type: unspecified Qualified Code(s): R07.9 - Chest pain, unspecified Condition: Good Instructions: ED Chest Pain Atypical Unkn Cause Comments: There are no concerning nor diagnostic findings on tonight's test, including EKG, blood tests, and chest x-ray. The blood tests included a cardiac enzyme (troponin) which was also normal. While these test results are obviously reassuring, the cause of your discomfort remains unclear at this time and further testing might be necessary. At this time it is safe and appropriate to discharge from the emergency department, but, as we discussed, I recommend you contact your primary care provider in the morning to arrange for the next available appointment for follow-up/reevaluation. Forms: PCP List Discharge Date/Time: 07/16/23 22:42
[2023-07-16 21:41] LABS: BASOPHILS # (AUTO) 0.1 10^3/uL (0.0-0.1); BASOPHILS % (AUTO) 0.6 %; EOSINOPHILS # (AUTO) 0.1 10^3/uL (0.0-0.7); EOSINOPHILS % (AUTO) 1.3 %; HCT - HEMATOCRIT 40.6 % (37.0-47.0); HGB - HEMOGLOBIN 13.6 g/dL (12.0-16.0); LYMPHOCYTES # (AUTO) 2.5 10^3/uL (1.5-3.5); LYMPHOCYTES % (AUTO) 29.5 %; MEAN CORPUSCULAR HEMOGLOBIN 30.1 pg (27.0-31.0); MEAN CORPUSCULAR HGB CONC 33.5 g/dL (32.0-36.0); MEAN CORPUSCULAR VOLUME 89.8 fL (81.0-99.0); MEAN PLATELET VOLUME 11.3 fL (7.9-10.8); MONOCYTES # (AUTO) 0.4 10^3/uL (0.0-1.0); NEUTROPHILS # (AUTO) 5.4 10^3/uL (1.5-6.6); NEUTROPHILS % (AUTO) 63.4 %; PLT - PLATELET COUNT 281 10^3/uL (130-450); RED BLOOD COUNT 4.52 10^6/uL (4.20-5.40); RED CELL DISTRIBUTION WIDTH 12.4 % (12.0-15.0); WHITE BLOOD COUNT 8.5 x10^3/uL (4.8-10.8)
[2023-07-16 22:04] LABS: ALBUMIN 4.5 g/dL (3.2-5.5); ALBUMIN/GLOBULIN RATIO 1.6 (1.0-2.2); BILIRUBIN,TOTAL 0.2 mg/dL (0.2-1.0); CALCIUM 9.8 mg/dL (8.5-10.3); CREATININE 0.6 mg/dL (0.6-1.3); POTASSIUM 3.5 mmol/L (3.5-4.5); TOTAL PROTEIN 7.3 g/dL (6.4-8.9)
[2023-07-16 22:07] LABS: TROPONIN I HIGH SENSITIVITY 2.4 ng/L (2.3-14.8)
--- NOTE | 2023-07-16 22:16 | XRAY Report ---
PROCEDURE: Chest 2V INDICATIONS: chest pain TECHNIQUE: 2 views of the chest were acquired. COMPARISON: 04/03/2021. FINDINGS: Surgical changes and devices: None. Lungs and pleura: No pleural effusions or pneumothorax. Lungs are clear. Mediastinum: Mediastinal contours appear normal. Heart size is normal. Bones and chest wall: No suspicious bony lesions. Overlying soft tissues appear unremarkable. IMPRESSION: No acute cardiopulmonary process. Reviewed by: Harsh Jackson MD on 07/16/2023 10:14 PM PDT Approved by: Harsh Jackson MD on 07/16/2023 10:14 PM PDT Station ID: [id number]
[2023-07-16 22:41] VITALS: BP 116/76; O2SAT 94
== END 2023-07-16 22:42 | disposition home or self-care (01) ==
LOC: ED 21:20
DX: R07.9 Chest pain, unspecified (principal); I10 Essential (primary) hypertension
CPT/HCPCS: 36415; 80053; 83690; 84484; 85025; 93005; 99283; 99284

== ENCOUNTER 2023-11-24 14:23 | Emergency (ER) | payer BC, MEDICAID ==
[2023-11-24 14:55] VITALS: O2SAT 100
--- NOTE | 2023-11-24 15:02 | XRAY Report ---
PROCEDURE: Chest 1V INDICATIONS: Chest pain TECHNIQUE: One view of the chest was acquired. COMPARISON: None. FINDINGS: Surgical changes and devices: None. Lungs and pleura: No pleural effusions or pneumothorax. Lungs are clear. Mediastinum: Mediastinal contours appear normal. Heart size is normal. Bones and chest wall: No suspicious bony lesions. Overlying soft tissues appear unremarkable. IMPRESSION: No acute cardiopulmonary process. Reviewed by: Lilly Berger MD, PhD on 11/24/2023 3:01 PM PDT Approved by: Lilly Berger MD, PhD on 11/24/2023 3:01 PM PDT Station ID: [id number]
[2023-11-24 15:06] LABS: BASOPHILS # (AUTO) 0.1 10^3/uL (0.0-0.1); BASOPHILS % (AUTO) 0.8 %; EOSINOPHILS # (AUTO) 0.1 10^3/uL (0.0-0.7); EOSINOPHILS % (AUTO) 1.1 %; HCT - HEMATOCRIT 39.5 % (37.0-47.0); HGB - HEMOGLOBIN 13.5 g/dL (12.0-16.0); LYMPHOCYTES # (AUTO) 1.9 10^3/uL (1.5-3.5); MEAN CORPUSCULAR HEMOGLOBIN 30.3 pg (27.0-31.0); MEAN CORPUSCULAR HGB CONC 34.2 g/dL (32.0-36.0); MEAN CORPUSCULAR VOLUME 88.8 fL (81.0-99.0); MEAN PLATELET VOLUME 11.9 fL (7.9-10.8); MONOCYTES # (AUTO) 0.3 10^3/uL (0.0-1.0); MONOCYTES % (AUTO) 4.7 %; NEUTROPHILS # (AUTO) 3.8 10^3/uL (1.5-6.6); NEUTROPHILS % (AUTO) 62.2 %; PLT - PLATELET COUNT 267 10^3/uL (130-450); RED BLOOD COUNT 4.45 10^6/uL (4.20-5.40); RED CELL DISTRIBUTION WIDTH 12.6 % (12.0-15.0); WHITE BLOOD COUNT 6.1 x10^3/uL (4.8-10.8)
[2023-11-24 15:21] LABS: TROPONIN I HIGH SENSITIVITY < 2.3 ng/L (2.3-14.8)
--- NOTE | 2023-11-24 15:21 | ED Physician Documentation ---
PD HPI CHEST PAIN - Stated complaint Stated Complaint: HIGH BP, CHEST PX - Chief complaint Chief Complaint: Cardiac - Additional information Additional information: 48-year-old female with history of hypertension migraines and hysterectomy. Patient reports that she has been starting to experience chest pain since yesterday evening. She attempted to see her primary care provider for further evaluation but they sent her here to the emergency department. She has had no recent medication changes or supplement changes. Patient says at home she has been dealing with some hypertension that is been new for her and has been systolically greater than 200 last night as well as a headache. She said that she has not taken anything for the headache but it eventually went away. No nausea or vomiting no shortness of breath chest pain does not get worse with any exertional activity. No unilateral leg swelling tenderness or pain. PD PAST MEDICAL HISTORY - Past Medical History Past Medical History: Yes Cardiovascular: Hypertension Respiratory: None Neuro: Migraines Endocrine/Autoimmune: None GI: None INTELLIGENCE ENGINEER: None : None HEENT: None Psych: None Musculoskeletal: None Derm: None - Past Surgical History Past Surgical History: No /INTELLIGENCE ENGINEER: Hysterectomy - Present Medications Home Medications: Ambulatory Orders Medication Instructions Recorded Confirmed Lisinopril [Zestril] 20 mg PO DAILY #30 tablet 04/03/21 - Allergies Allergies/Adverse Reactions: Allergies Allergy/AdvReac Type Severity Reaction Status Date / Time No Known Drug Allergies Allergy Verified 11/24/23 14:29 - Social History Does the pt smoke?: No Smoking Status: Never smoker Does the pt drink ETOH?: No Does the pt have substance abuse?: No - Immunizations Immunizations are current?: No Immunizations: Other immun not current - POLST Patient has POLST: No PD ED PE NORMAL - Vitals Vital signs reviewed: Yes - General General: Alert and oriented X 3, No acute distress, Well developed/nourished - HEENT HEENT: Atraumatic, PERRL - Neck Neck: Supple, no meningeal sign - Cardiac Cardiac: RRR, No murmur, No gallop, Strong equal pulses - Respiratory Respiratory: No respiratory distress, Clear bilaterally - Abdomen Abdomen: Normal bowel sounds, Soft, Non tender, No organomegaly - Rectal Rectal: Deferred - Back Back: No CVA TTP - Derm Derm: Normal color, Warm and dry, No rash - Extremities Extremities: No edema, No calf tenderness / cord - Psych Psych: Normal mood, Normal affect Results - Vitals Vitals: Vital Signs - 24 hr 11/24/23 11/24/23 11/24/23 14:29 15:02 16:09 Temperature 36.5 C Heart Rate 72 69 Respiratory 16 19 Rate Blood Pressure 172/87 H 146/91 H Blood Pressure 150/89 H [Left] O2 Saturation 100 100 Oxygen O2 Source Room air - EKG (time done) 1432 EKG releavant findings:: EKG personally interpreted by author of this note. Relevant findings are: Rate: Rate (enter#) (65) Rhythm: NSR [place]: Normal Intervals: Normal NC QRS: Normal Ischemia: Normal ST segments Computer interpretation: Agree with computer - Labs Labs: Laboratory Tests 11/24/23 11/24/23 14:52 14:52 WBC 6.1 RBC 4.45 Hgb 13.5 Hct 39.5 MCV 88.8 MCH 30.3 MCHC 34.2 RDW 12.6 Plt Count 267 MPV 11.9 H Neut # (Auto) 3.8 Lymph # (Auto) 1.9 Faulk # (Auto) 0.3 Eos # (Auto) 0.1 Baso # (Auto) 0.1 Absolute Nucleated RBC 0.00 Nucleated RBC % 0.0 Sodium 138 Potassium 4.0 Chloride 104 Carbon Dioxide 28 Anion Gap 6.0 BUN 6 Creatinine 0.6 Estimated GFR (MDRD) 107 Glucose 101 Calcium 9.7 Total Bilirubin 0.3 AST 19 ALT 16 Alkaline Phosphatase 65 Troponin I High Sens < 2.3 L Total Protein 7.2 Albumin 4.5 Globulin 2.7 Albumin/Globulin Ratio 1.7 Lipase 16 - Rads (name of study) Chest x-ray Relevant Findings:: Final report received, EMP independent interpretation of test, Other (No acute cardiopulmonary process) PD Medical Decision Making - ED course ED course: Exam without evidence of volume overload so doubt heart failure. EKG without signs of active ischemia. Given the timing of pain to ER presentation, single troponin was negative so doubt NSTEMI. Presentation not consistent with acute PE (Wells low risk low),pneumothorax (not visualized on chest xr), thoracic aortic dissection, pericarditis, tamponade, pneumonia (no infectious symptoms, clear chest xr), myocarditis (no recent illness, neg trop). HEART score:3 so discharge patient home with PCP follow up. Departure - Departure Disposition: 01 Home, Self Care Clinical Impression: Chest pain Instructions: ED Chest Pain Atypical Unkn Cause Comments: Thank you for trusting us with your care. As we discussed if your chest pain gets worse or changes at all please come back to the emergency department for further and reevaluation. Please let your primary care provider know that you may need a medication adjustment for your high blood pressure although as we discussed it is very important that you are managing her high blood pressure with diet and exercise with the medications. Forms: PCP List Discharge Date/Time: 11/24/23 16:21
[2023-11-24 15:22] LABS: ALBUMIN 4.5 g/dL (3.2-5.5); ALBUMIN/GLOBULIN RATIO 1.7 (1.0-2.2); ALKALINE PHOSPHATASE 65 IU/L (42-121); ALT ALANINE AMINOTRANSFERASE 16 IU/L (10-60); AST ASPARTATE AMINOTRANSFERASE 19 IU/L (10-42); BILIRUBIN,TOTAL 0.3 mg/dL (0.2-1.0); BUN - BLOOD UREA NITROGEN 6 mg/dL (6-20); CALCIUM 9.7 mg/dL (8.5-10.3); CARBON DIOXIDE - CO2 28 mmol/L (21-32); CHLORIDE 104 mmol/L (101-111); CREATININE 0.6 mg/dL (0.6-1.3); GFR - MDRD 107 (>89); GLUCOSE 101 mg/dL (74-104); LIPASE 16 U/L (11-82); SODIUM 138 mmol/L (135-145); TOTAL PROTEIN 7.2 g/dL (6.4-8.9)
[2023-11-24 16:16] VITALS: BP 146/91
== END 2023-11-24 16:21 | disposition home or self-care (01) ==
LOC: ED 14:23
DX: R07.9 Chest pain, unspecified (principal)
CPT/HCPCS: 36415; 80053; 83690; 84484; 85025; 93005; 99283; 99284

== ENCOUNTER 2023-12-23 10:38 | Outpatient (CLI) | payer BC, MEDICAID ==
[2023-12-23 12:51] LABS: ESTIMATED AVERAGE GLUCOSE 100 mg/dL (70-100); HEMOGLOBIN A1c% 5.1 % (4.27-6.07)
[2023-12-23 13:01] LABS: ALBUMIN 4.1 g/dL (3.2-5.5); ALBUMIN/GLOBULIN RATIO 1.5 (1.0-2.2); ALKALINE PHOSPHATASE 54 IU/L (42-121); ALT ALANINE AMINOTRANSFERASE 12 IU/L (10-60); AST ASPARTATE AMINOTRANSFERASE 10 IU/L (10-42); BILIRUBIN,TOTAL 0.4 mg/dL (0.2-1.0); BUN - BLOOD UREA NITROGEN 6 mg/dL (6-20); CARBON DIOXIDE - CO2 29 mmol/L (21-32); CHLORIDE 104 mmol/L (101-111); CHOL/HDL RATIO 3.7 (<4.4); CHOLESTEROL 157 mg/dL; CREATININE 0.6 mg/dL (0.6-1.3); GFR - MDRD 107 (>89); GLUCOSE 110 mg/dL (74-104); HDL CHOLESTEROL 43 mg/dL; LDL CHOLESTEROL,CALCULATED 80 mg/dL; LDL/HDL RATIO 1.9 (<4.4); POTASSIUM 3.5 mmol/L (3.5-4.5); SODIUM 138 mmol/L (135-145); TOTAL PROTEIN 6.9 g/dL (6.4-8.9); TRIGLYCERIDES 169 mg/dL; VLDL CHOLESTEROL 34 mg/dL
[2023-12-23 13:03] LABS: THYROID STIMULATING HORMONE 1.28 uIU/mL (0.34-5.60)
== END 2023-12-23 10:39 | disposition home or self-care (01) ==
LOC: LAB.N 10:38
PROVIDERS: ATTEND Family Medicine
DX: I10 Essential (primary) hypertension (principal); R73.9 Hyperglycemia, unspecified; Z82.49 Family history of ischemic heart disease and other diseases of the circulatory system
CPT/HCPCS: 36415; 80053; 80061; 83036; 83721; 84443

== ENCOUNTER 2024-01-13 12:55 | Outpatient (CLI) | payer BC, MEDICAID ==
--- NOTE | 2024-01-13 13:23 | CARDIAC PROCEDURE NOTE ---
Stress Test Report Service Date: 01/13/24 Service Time: 13:00 Ordering Provider: Treva Faith MD Indication for Test: Assess episodic, prolonged, non-exertional chest pain episodes in patient with multiple cardiac risk factors. Significant Medical History: Prerna is referred for a Roberto protocol ETT today, to evaluate her for 3 major episodes of chest discomfort that she has experienced over the past few weeks. She has a history of high blood pressure, probably for many years but under treatment for at least the past 5 years. She currently takes amlodipine 5 mg every morning, lisinopril 20 mg every morning and metoprolol 50 mg twice daily, though has not taken the latter for the past 36 hours. She recalls metoprolol being added along the way, after other meds were started for her hypertension, and being of some benefit for her BP control, though not clearly a "game changer". In early November she awoke from sleep one night with a headache and sharp central chest pain that was unrelenting, so she went into the [facility] Emergency Department where her blood pressure was quite elevated (172/87) but her EKG was nonischemic and troponin negative for acute cardiac injury. The pain gradually resolved over greater than 12 hours. A couple of days later she had onset of similar symptoms in the middle of the day, for which she was seen at the [facility] Emergency Department where evaluation was also low risk. She was given nitroglycerin and other medications without, per her recollection, a clear beneficial response. She reports one additional episode of chest pain that occurred after walking along the beach with her daughter following her return home, which persisted overnight then gradually resolved the next morning. 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 She has an arm BP cuff at home but has not performed recent home BP monitoring. Cardiac Risk Factors: Positive for history of hypertension (probably present for many years, but treated for at least 3 years, currently on 3 meds), family history on both sides (including sister with "fatal [place]", father with [place] and stroke, and both grandmothers); negative for diabetes and treated hyperlipidemia (lipids on 12/23/23 included TChol 157, LDLc 80, HDLc 43, TG 169). She smoked for a few years but quit >20 years ago, so attributable risk is likely very low now. No premature menopause. Type of Stress Test: Exercise Treadmill Test (ETT) Procedure: -Exercise Treadmill Test- After signing informed consent, the patient performed treadmill exercise using a Roberto protocol. The patient exercised for 8 minutes 47 seconds and achieved a peak heart rate of 152 (88 percent predicted maximum heart rate for age), and an estimated workload of 10.2 METS. The test was terminated due to fatigue/shortness of breath. Resting heart rate: 85 Peak heart rate: 152 Normal response to exercise. Resting BP: 142/87 Peak BP: 190/79 Borderline hypertensive at rest with normal BP response to exercise. Room air oxygen saturation during exercise ranged between 97-99%. Rhythm during exercise: Sinus rhythm throughout with zero PVCs recorded. Symptoms: Fatigue and shortness of breath became limiting, but she described no chest pressure/tightness/discomfort. EKG at rest showed normal sinus rhythm, normal throughout. EKG at peak stress showed horizontal ST depression of at least 1.0 mm in leads V4-V6, likely meeting diagnostic EKG criteria for ischemia. In Recovery there was normal/rapid decrease in HR, slower return of BP towards resting level. No imaging was ordered with this stress test. I, Juanito Lorenzana MD, was present throughout this treadmill stress study and supervised it in its entirety. Summary: 1) Exercise tolerance was slightly above average for age and sex as evidenced by JAYLAN of -9%. 2) Normal resting EKG. 3) Adequate level of exercise was achieved on this treadmill stress test. 4) Borderline resting BP with normal BP response to exercise. 5) ST depression meeting EKG diagnostic criteria for ischemia was seen near peak stress. 6) No imaging was ordered with this test. Conclusions and Recommendations: 1) With Prerna's above average exercise time, favorable hemodynamic response and no reported chest discomfort it is likely that the ST depression observed represents a false positive response, possibly due in part to her female gender and/or hypertension. 2) I discussed two possible follow-up scenarios with Prerna, in part based on what is possible financially. She could have another treadmill stress test with echo imaging, which if normal would increase confidence that the ST depression represents a false positive response. Alternatively she could have a coronary calcium chest CT evaluation. If normal (ie zero) this would be sufficient to exclude coronary disease and the priority for adding a statin for long-term risk reduction. A moderate detectable level would favor statin treatment and potentially support an expectant approach to further, symptom-dependent stress echocardiogram evaluation. A high level (ie >400) would probably require a stress imaging study sooner rather than later. 3) I strongly encouraged her to bring her blood pressure cuff with her to her imminent visit with Dr. Faith to make sure that it reads accurately, following which she can record some blood pressures to make sure whether intensification of antihypertensive therapy is indicated, or not.
== END 2024-01-13 12:56 | disposition home or self-care (01) ==
LOC: DI 12:55
PROVIDERS: ATTEND Family Medicine
DX: R07.9 Chest pain, unspecified (principal); Z82.49 Family history of ischemic heart disease and other diseases of the circulatory system; I10 Essential (primary) hypertension; Z87.891 Personal history of nicotine dependence
CPT/HCPCS: 93017